=== PATIENT | female | born 1965 | race Hispanic/Latino ===

== ENCOUNTER 2020-08-12 23:24 | Emergency (ER) | payer SELFPAY ==
[2020-08-12] MEDS ORDERED: DiphenhydrAMINE HCL 50 MG/ML VIAL ONE (23:54)
[2020-08-12] MEDS ORDERED: PREDNISONE 20 MG TABLET ONE (23:54)
[2020-08-12] MEDS ORDERED: FAMOTIDINE 20MG TAB 20 MG TAB ONE (23:54)
== END 2020-08-13 00:38 | disposition home or self-care (01) ==
LOC: EDH 23:24
DX: L50.0 Allergic urticaria (principal); Z72.0 Tobacco use
CPT/HCPCS: 96372; 99283; J1200

== ENCOUNTER 2021-04-29 13:49 | Emergency (ER) | payer OTHER ==
[~2021-04-29] VITALS: Ht 157.5 cm; Wt 88.5 kg
[2021-04-29 14:44] VITALS: BP 119/79
[2021-04-29] MEDS ORDERED: BUDE180H IH (14:54)
[2021-04-29] MEDS ORDERED: ALBUHFA IH (14:54)
== END 2021-04-29 15:11 | disposition home or self-care (01) ==
LOC: EDH 13:49
DX: U07.1 COVID-19 (principal); J98.8 Other specified respiratory disorders
CPT/HCPCS: 71045; 87635; 87804 ×2; 99284; C9803

== ENCOUNTER 2023-02-22 19:45 | Emergency (ER) | payer BC, OTHER ==
[~2023-02-22] VITALS: Ht 157.5 cm; Wt 83.9 kg
[~2023-02-22 19:45] MED LIST: ALBUHFA IH; BUDE180H IH
[2023-02-22] MEDS ORDERED: ONDANSETRON 4MG INJ IVP ONE (20:30)
[2023-02-22] MEDS ORDERED: ACETAMINOPHEN 325 MG TAB PO ONE (20:30)
[2023-02-22] MEDS ORDERED: LACTATED RINGERS IV ONE (20:30)
[2023-02-22 20:37] LABS: BASOPHILS % (AUTO) 0.2 % (0.0-5.0); EOSINOPHILS % (AUTO) 0.1 % (0.0-8.0); HEMATOCRIT 39.1 % (36-48); LYMPHOCYTES % (AUTO) 6.2 % (21.0-51.0); MEAN CORPUSCULAR HEMOGLOBIN 30.3 pg (27.0-33.0); MEAN CORPUSCULAR VOLUME 89.1 fL (79-99); MONOCYTES % (AUTO) 6.2 % (3.0-13.0); NEUTROPHILS % (AUTO) 86.7 % (40.0-77.0); PLATELET COUNT (AUTO) 172 K/uL (130-400); RED BLOOD CELL COUNT(AUTO) 4.39 MIL/uL (4.00-5.50); RED CELL DISTRIBUTION WIDTH 12.8 % (11.0-15.5); WHITE BLOOD COUNT (AUTO) 12.8 K/uL (4.8-10.8)
[2023-02-22 21:13] LABS: CREATININE 0.6 mg/dL (0.5-1.5); POTASSIUM 3.1 mmol/L (3.5-5.1)
[2023-02-22 21:17] LABS: ALBUMIN 3.3 g/dL (3.5-5.0)
[2023-02-22 21:26] LABS: APPEARANCE,URINE CLEAR (CLEAR); BILIRUBIN,URINE NEGATIVE (NEGATIVE); COLOR,URINE LIGHT-YELLOW (YELLOW); GLUCOSE, URINE (UA) NEGATIVE (NEGATIVE); KETONES,URINE 20 mg/dL (NEGATIVE); LEUKOCYTE ESTERASE ,URINE NEGATIVE Leu/uL (NEGATIVE); NITRATE,URINE NEGATIVE (NEGATIVE); PROTEIN,URINE NEGATIVE (NEGATIVE); UROBILINOGEN,URINE 0.2 mg/dL (0.2-1.0)
[2023-02-22 21:30] LABS: MUCUS,URINE RARE LPF (None Seen); WBC,URINE 0-1 /HPF (0-1)
[2023-02-22 22:00] VITALS: BP 118/65
[2023-02-22] MEDS ORDERED: NIRM1TAB PO (22:22)
== END 2023-02-22 22:41 | disposition home or self-care (01) ==
LOC: EDH 19:45
DX: U07.1 COVID-19 (principal)
CPT/HCPCS: 99284; 96374; 71045; 87635; 84484; 80053; 83690; 85025; 87040 ×2; 87077; 87186; 87880; 87804 ×2; 83605; 81001; 36415; 93005; C9803; J7120; J2405